=== PATIENT | female | born 1965 | race Caucasian/White ===

== ENCOUNTER → 2017-09-01 | Outpatient (CLI) | payer MEDICAID | END | disposition home or self-care (01) | LOC: PCVCIMAG 13:54 | DX: I73.9 Peripheral vascular disease, unspecified (principal); I21.21 ST elevation (STEMI) myocardial infarction involving left circumflex coronary artery; I10 Essential (primary) hypertension; E78.00 Pure hypercholesterolemia, unspecified; I25.10 Atherosclerotic heart disease of native coronary artery without angina pectoris; I35.0 Nonrheumatic aortic (valve) stenosis; I25.2 Old myocardial infarction; Z79.899 Other long term (current) drug therapy; Z79.82 Long term (current) use of aspirin; Z95.5 Presence of coronary angioplasty implant and graft | CPT/HCPCS: 80061; 93005; 93308; 93925; G0463 ==

== ENCOUNTER → 2017-09-06 | Outpatient (CLI) | payer MEDICAID | END | disposition home or self-care (01) | LOC: PCVCIMAG 16:12 | DX: I25.10 Atherosclerotic heart disease of native coronary artery without angina pectoris (principal); I35.0 Nonrheumatic aortic (valve) stenosis; I48.91 Unspecified atrial fibrillation; I25.2 Old myocardial infarction; I10 Essential (primary) hypertension; E11.9 Type 2 diabetes mellitus without complications; Z95.5 Presence of coronary angioplasty implant and graft | CPT/HCPCS: 93325; 93351 ==

== ENCOUNTER → 2017-12-04 | Outpatient (CLI) | payer MEDICAID | END | disposition home or self-care (01) | LOC: PCVCCLINIC 11:39 | PROVIDERS: ATTEND Internal Medicine Cardiovascular Disease | DX: I25.10 Atherosclerotic heart disease of native coronary artery without angina pectoris (principal); I10 Essential (primary) hypertension; I35.0 Nonrheumatic aortic (valve) stenosis; E78.5 Hyperlipidemia, unspecified; R94.31 Abnormal electrocardiogram [ECG] [EKG]; Z79.899 Other long term (current) drug therapy; Z79.82 Long term (current) use of aspirin | CPT/HCPCS: 80061; 93005; G0463 ==

== ENCOUNTER → 2018-09-25 | Outpatient (CLI) | payer MEDICAID | END | disposition home or self-care (01) | LOC: PCVCCLINIC 13:30 | PROVIDERS: ATTEND Internal Medicine Cardiovascular Disease | DX: I25.10 Atherosclerotic heart disease of native coronary artery without angina pectoris (principal); I10 Essential (primary) hypertension; E78.00 Pure hypercholesterolemia, unspecified; R94.31 Abnormal electrocardiogram [ECG] [EKG]; R07.9 Chest pain, unspecified; R06.02 Shortness of breath; Z79.82 Long term (current) use of aspirin; Z79.899 Other long term (current) drug therapy | CPT/HCPCS: 36415; 80061; 93005; G0463 ==

== ENCOUNTER → 2018-12-06 | Outpatient (CLI) | payer MEDICAID ==
[~2018-12-06] MED LIST: IPRATRPIUM/ALBUTEROL 0.5/2.5MG 3 ML NEBU. ONE
--- NOTE | 2018-12-06 15:53 | PCVCIMAG ---
APPROVED REPORT Study performed: 12/06/2018 14:34:47 Exam: Stress Echocardiogram Indication: CAD s/p [place] Stress Nurse: Saira Stuart RN Status: routine Ht: 5 ft 6 in HR: 85 bpm BP: 120/104 mmHg Rhythm: NSR Medical History Medical History: CAD s/p stent, [place],, Diabetes, HTN, , Hyperlipidemia, Aortic Stenosis Procedure The patient underwent an Exercise Stress Test using the Rafael Protocol. Blood pressure, heart rate, and EKG were monitored. An Echocardiogram was performed by engine emission technician in four stages in quad fashion. At peak stress, four selected images were obtained and placed side by side with resting images for comparison. Echo Enhancing Agent Agent(s) / Amount(s) Used: Definity, Agitated Saline cc Stress Test Details Stress Test: Exercise stress testing was performed using a Rafael protocol. HR Resting HR: 85 bpmMax Heart Rate (APMHR): 169 bpm Max HR Achieved: 139 bpmTarget HR (85% APMHR): 143 bpm % of APMHR: 82 Recovery HR: 96 bpm HR response to stress: Normal HR response to stress BP Resting BP: 120/104 mmHg Max BP: 150/90 mmHg Recovery BP: 140/100 mmHg BP response to stress: Normal blood pressure response to stress. ECG Resting ECG: Sinus Rhythm Stress ECG: Sinus Rhythm Recovery ECG: Sinus Rhythm Clinical Reason for Termination: Maximal effort Exercise duration: 5 min 18 sec Highest Stage Achieved: Stage 2: 2.5 mph at 12% grade. Exercise capacity: 7.00 METs Overall Exercise Capacity for Age: Poor Pre-Stress Echo The resting Echocardiogram showed normal left ventricular contractility with an estimated Ejection Fraction of about 50-55%. Fixed inferior akinesis from previous [place]. Post-Stress Echo The stress Echocardiogram showed normal left ventricular contractility with an estimated Ejection Fraction of about %. Fixed inferior akinesis from previos [place]. No new regional wall motion abnormalities. Nurse Note- Pt wheezy and short of air for some time after exercise. Albuterol nubulizer treatment administered per Dr Tracy order with reported relief. Conclusion Clinical Response: Non-ischemic Exercise Capacity: Below Average Stress ECG Response: Non-ischemic Stress Echo Images: Non-ischemic Patient unable to reach target heart rate. Aortic valve area is calculated 1.1cm2. Peak gradient is 38mmHg. Mean gradient is 24mmHg. Trace aortic insufficiency. Moderately calcified leaftlets. Other Information Study Quality: Good <Conclusion> Patient unable to reach target heart rate. Aortic valve area is calculated 1.1cm2. Peak gradient is 38mmHg. Mean gradient is 24mmHg. Trace aortic insufficiency. Moderately calcified leaftlets.
== END | disposition home or self-care (01) ==
LOC: PCVCIMAG 14:20
PROVIDERS: ATTEND Internal Medicine Cardiovascular Disease
DX: I35.0 Nonrheumatic aortic (valve) stenosis (principal); I25.10 Atherosclerotic heart disease of native coronary artery without angina pectoris; R94.31 Abnormal electrocardiogram [ECG] [EKG]; I48.91 Unspecified atrial fibrillation; R20.0 Anesthesia of skin; R07.9 Chest pain, unspecified; I10 Essential (primary) hypertension; R06.02 Shortness of breath
CPT/HCPCS: 80061; 93325; 93351; J7620